=== PATIENT | female | born 1950 | race Caucasian/White ===

== ENCOUNTER 2018-08-27 08:00 | Day surgery (SDC) | payer MEDICARE, OTHER ==
[~2018-08-27 08:00] MED LIST: CIPR500; FLUC100; ITRA100; METO50 PO
== END 2018-08-27 22:45 | disposition home or self-care (01) ==
LOC: MOI US 08:00
DX: C50.911 Malignant neoplasm of unspecified site of right female breast (principal); Z17.0 Estrogen receptor positive status [ER+]
CPT/HCPCS: 19083; 77065; 88305; 88360; A4648

== ENCOUNTER 2018-09-20 08:50 | Day surgery (SDC) | payer MEDICARE, OTHER ==
[2018-09-20] MEDS ORDERED: CYCL10 PO (10:44)
== END 2018-09-20 22:47 | disposition home or self-care (01) ==
LOC: MOI US 08:50
PROC: BH40ZZZ Ultrasonography of Right Breast (ICD-10-PCS; principal; 2018-09-20)
DX: C50.411 Malignant neoplasm of upper-outer quadrant of right female breast (principal)
CPT/HCPCS: 19285; 77065

== ENCOUNTER 2018-09-23 07:56 | Day surgery (SDC) | payer MEDICARE, OTHER ==
[~2018-09-23] VITALS: Ht 167.6 cm; Wt 79.4 kg
[~2018-09-23 07:56] MED LIST changes: +CYCL10 PO
--- NOTE | 2018-09-23 10:12 | NUR ---
Ambulatory in Day Surgery History, Chart, Medications and Allergies reviewed before start of procedure.Patient confirms NPO status and agrees with scheduled surgery. Patient reports completing Chlorhexadine shower X2 prior to admission to hospital.Surgical site prepped with 2% Chlorhexidine cloth wipe.
== END 2018-09-23 23:04 | disposition home or self-care (01) ==
LOC: NM 07:56 → ORSCMMR 07:56 → NM 09:00
PROVIDERS: Surgery
PROC: 07B50ZX Excision of Right Axillary Lymphatic, Open Approach, Diagnostic (ICD-10-PCS; principal; 2018-09-23 11:00)
PROC: 0HBT0ZZ Excision of Right Breast, Open Approach (ICD-10-PCS; principal; 2018-09-23 11:00)
DX: C50.411 Malignant neoplasm of upper-outer quadrant of right female breast (principal); D36.0 Benign neoplasm of lymph nodes; Z17.0 Estrogen receptor positive status [ER+]; I10 Essential (primary) hypertension; Z79.899 Other long term (current) drug therapy
CPT/HCPCS: 38792; 76098; 88305; 88307; 88341; 88342; A9520; J0690; J1100; J1885; J2250; J2405; J3010; J7120; Q9968

== ENCOUNTER 2018-12-28 08:50 | Day surgery (SDC) | payer MEDICARE, OTHER ==
[2018-12-31] MEDS ORDERED: Naproxen375 MG PO (18:13)
[2018-12-31] MEDS ORDERED: Mobic15 MG PO (18:13)
[2018-12-31] MEDS ORDERED: ONDA4ODT (18:14)
[2018-12-31] MEDS ORDERED: METO100 PO (18:14)
[2018-12-31] MEDS ORDERED: DEXA4 PO (18:14)
[2018-12-31] MEDS ORDERED: TRAM50 PO (18:14)
[2018-12-31] MEDS ORDERED: Percocet 5-3251 EACH PO (18:41)
== END 2018-12-28 22:47 | disposition home or self-care (01) ==
LOC: CT 08:50
DX: C41.4 Malignant neoplasm of pelvic bones, sacrum and coccyx (principal); Z88.2 Allergy status to sulfonamides; Z88.5 Allergy status to narcotic agent; Z88.8 Allergy status to other drugs, medicaments and biological substances; Z79.899 Other long term (current) drug therapy; Z85.3 Personal history of malignant neoplasm of breast
CPT/HCPCS: 20225; 77012; 88305; 88341; 88342

== ENCOUNTER → 2019-07-24 | Outpatient (CLI) | payer MEDICARE, OTHER ==
[~2019-07-24] MED LIST changes: +DEXA4 PO; +METO100 PO; +Mobic15 MG PO; +Naproxen375 MG PO; +ONDA4ODT; +Percocet 5-3251 EACH PO; +TRAM50 PO
== END | disposition home or self-care (01) ==
LOC: LAB SHORT 10:30 → LAB 10:30
DX: R10.0 Acute abdomen (principal); R11.0 Nausea
CPT/HCPCS: 87077; 87086; 87186

== ENCOUNTER → 2019-09-27 | Outpatient (CLI) | payer MEDICARE, OTHER | END | disposition home or self-care (01) | LOC: PLD 11:52 → LAB SHORT 11:52 | DX: D22.71 Melanocytic nevi of right lower limb, including hip (principal) | CPT/HCPCS: 88305 ==

== ENCOUNTER → 2020-07-27 | Outpatient (CLI) | payer MEDICARE, OTHER | END | disposition home or self-care (01) | LOC: LAB 15:15 | DX: R30.0 Dysuria (principal) | CPT/HCPCS: 87077; 87086; 87186 ==

== ENCOUNTER 2021-03-25 07:22 | Day surgery (SDC) | payer MEDICARE, OTHER | END 2021-03-25 23:16 | disposition home or self-care (01) | LOC: MOI US 07:22 | DX: N60.32 Fibrosclerosis of left breast (principal); N64.89 Other specified disorders of breast; R92.8 Other abnormal and inconclusive findings on diagnostic imaging of breast | CPT/HCPCS: 19083; 88305 ==

== ENCOUNTER 2022-01-14 11:14 | Emergency (ER) | payer MEDICARE, OTHER ==
[~2022-01-14] VITALS: Ht 167.6 cm; Wt 63.5 kg
[2022-01-14 11:36] LABS: Source, Urine Clean Catch
[2022-01-14 11:46] LABS: Appearance, Urine Clear (Clear); Bilirubin, Urine Neg (Neg); Blood, Urine Neg (Neg); Color, Urine Yellow (P-Yellow); Glucose Qualitative, Urine 1+ (Neg); Ketones, Urine Neg (Neg); Leukocyte Esterase, Urine Neg (Neg); Nitrite, Urine Neg (Neg); Protein, Urine 1+ (Neg); Urobilinogen, Urine NORM (Normal)
[2022-01-14 12:12] LABS: BASOPHILS ABSOLUTE AUTO 0.01 K/mm3 (0.00-0.23); BASOPHILS PERCENT AUTO 0 % (0-2); EOSINOPHILS PERCENT AUTO 0 % (0-6); Hematocrit 41.9 % (33.0-51.0); Hemoglobin 14.8 g/dL (11.5-16.0); IMMATURE GRAN ABSOLUTE AUTO 0.06 K/mm3 (0.00-0.10); IMMATURE GRAN PERCENT AUTO 1 % (0-1); LYMPHOCYTES ABSOLUTE AUTO 0.36 K/mm3 (0.84-5.20); LYMPHOCYTES PERCENT AUTO 4 % (21-46); MONOCYTES ABSOLUTE AUTO 0.34 K/mm3 (0.16-1.47); MONOCYTES PERCENT AUTO 4 % (4-13); Mean Corpuscular HGB 35.6 pg (26.0-34.0); Mean Corpuscular HGB Conc 35.3 g/dL (31.5-36.5); Mean Corpuscular Volume 101 fL (80-100); Mean Platelet Volume 11.9 fL (9.1-12.4); NEUTROPHILS ABSOLUTE AUTO 8.21 K/mm3 (1.96-9.15); NEUTROPHILS PERCENT AUTO 91 % (41-73); Platelet Count 71 K/mm3 (150-400); RDW Coefficient Variation 12.2 % (11.7-14.2); RDW Standard Deviation 45.5 fL (35.1-46.3); Red Blood Cell Count 4.16 M/mm3 (3.80-5.20); White Blood Cell Count 8.98 K/mm3 (4.00-11.30)
[2022-01-14 12:29] LABS: Albumin, Blood 2.7 g/dL (3.4-5.0); Bilirubin, Total 0.8 mg/dL (0.1-1.0); Bun/Creatinine Ratio 44.5 (12.0-20.0); Calcium, Blood 8.2 mg/dL (8.5-10.1); Creatinine, Blood 0.47 mg/dL (0.40-1.00); Globulin, Blood 2.8 g/dL (2.2-4.0); Potassium, Blood 4.1 mmol/L (3.5-5.5); Total Protein, Blood 5.5 g/dL (6.4-8.2)
--- NOTE | 2022-01-15 10:11 | NUR ---
LATE ENTRY: Patient had discharged home before this RN was able to meet with her. This RN placed a call to her after she had arrived home. Spoke with both her and her via their speakerphone. Pt tells this RN she has breast cancer with mets to spine and bones. She reports taking chemotherapy tablets at home, but is now finished with them and will be going into the [facility] for IV chemo. She states she has been falling frequently due to weakness, feeling dizzy and weak over the past few weeks. She was seen in the ER for labs and general exam. Nothing specific jumped out to the ER physician the pt states, and she returned home. She and her then state they are going to continue to fight the cancer until or unless Dr. Olson tells them there is no more they can do. She is alert, oriented and pleasant. Palliative care available to assist with symptom management if needed.
== END 2022-01-14 13:44 | disposition home or self-care (01) ==
LOC: ER 11:14
PROVIDERS: Emergency Medicine
DX: R55 Syncope and collapse (principal); C50.919 Malignant neoplasm of unspecified site of unspecified female breast; C79.51 Secondary malignant neoplasm of bone; Z66 Do not resuscitate; Z51.5 Encounter for palliative care; Z79.899 Other long term (current) drug therapy; Z88.2 Allergy status to sulfonamides; Z88.1 Allergy status to other antibiotic agents; Z88.5 Allergy status to narcotic agent
CPT/HCPCS: 36415; 80053; 85025; J7030

== ENCOUNTER 2022-02-24 19:43 | Emergency (ER) | payer MEDICARE, OTHER ==
[~2022-02-24] VITALS: Ht 167.6 cm; Wt 68.0 kg
[2022-02-25 00:10] LABS: BASOPHILS ABSOLUTE AUTO 0.01 K/mm3 (0.00-0.23); BASOPHILS PERCENT AUTO 0 % (0-2); EOSINOPHILS ABSOLUTE AUTO 0.01 K/mm3 (0.00-0.68); EOSINOPHILS PERCENT AUTO 0 % (0-6); Hematocrit 28.5 % (33.0-51.0); Hemoglobin 9.5 g/dL (11.5-16.0); IMMATURE GRAN ABSOLUTE AUTO 0.22 K/mm3 (0.00-0.10); IMMATURE GRAN PERCENT AUTO 2 % (0-1); LYMPHOCYTES ABSOLUTE AUTO 0.49 K/mm3 (0.84-5.20); LYMPHOCYTES PERCENT AUTO 5 % (21-46); MONOCYTES PERCENT AUTO 6 % (4-13); Mean Corpuscular HGB 36.5 pg (26.0-34.0); Mean Corpuscular HGB Conc 33.3 g/dL (31.5-36.5); Mean Corpuscular Volume 110 fL (80-100); Mean Platelet Volume 10.3 fL (9.1-12.4); NEUTROPHILS ABSOLUTE AUTO 7.89 K/mm3 (1.96-9.15); NEUTROPHILS PERCENT AUTO 87 % (41-73); NRBC Auto 7.7 /100 WBC (0.0-0.2); Platelet Count 157 K/mm3 (150-400); RDW Coefficient Variation 21.6 % (11.7-14.2); RDW Standard Deviation 78.8 fL (35.1-46.3); White Blood Cell Count 9.12 K/mm3 (4.00-11.30)
[2022-02-25 00:28] LABS: Albumin, Blood 2.5 g/dL (3.4-5.0); Bilirubin, Total 0.7 mg/dL (0.1-1.0); Bun/Creatinine Ratio 57.7 (12.0-20.0); Calcium, Blood 8.5 mg/dL (8.5-10.1); Creatinine, Blood 0.47 mg/dL (0.40-1.00); Globulin, Blood 2.5 g/dL (2.2-4.0); Potassium, Blood 4.2 mmol/L (3.5-5.5)
[2022-03-03] MEDS ORDERED: ALPR1 PO (11:19)
== END 2022-02-25 03:22 | disposition home or self-care (01) ==
LOC: ER 19:43
PROVIDERS: Emergency Medicine
DX: R53.1 Weakness (principal); E88.09 Other disorders of plasma-protein metabolism, not elsewhere classified; R60.0 Localized edema; Z88.2 Allergy status to sulfonamides; Z88.5 Allergy status to narcotic agent
CPT/HCPCS: 36415; 71045; 80053; 83880; 85025; 93005; 93010; 96360; 99285-25; A9270; J7030